=== PATIENT | male | born 1985 | race African-American/Black ===

== ENCOUNTER 2016-06-21 10:36 | Emergency (ER) | payer SELFPAY ==
[2016-06-21] MEDS ORDERED: IBUPROFEN 800 MG TABLET PO ONE (11:00)
--- NOTE | 2016-06-21 11:00 | ER Document Report ---
ED Medical Screen (RME) - General Chief Complaint: Knee Pain Stated Complaint: KNEE, HIP PAIN Time seen by provider: 10:58 Mode of Arrival: Ambulatory Information source: Patient Notes: 30-year-old male presents to ED for left knee and right hip pain after falling down a flight stairs inside of his house last night. Denies loss of consciousness denies any other injuries. Some swollen to the left knee. I have greeted and performed a rapid initial assessment of this patient. A comprehensive ED assessment and evaluation of the patient, analysis of test results and completion of medical decision making process will be conducted by an additional ED providers. TRAVEL OUTSIDE OF THE [place] IN LAST 30 DAYS: No - Related Data Allergies/Adverse Reactions: fabric softener Allergy (Unknown, Uncoded 12/16/15 20:38) fleas Allergy (Unknown, Uncoded 12/16/15 20:38) Past Medical History - Immunizations Hx Diphtheria, Pertussis, Tetanus Vaccination: Yes Physical Exam - Vital signs Vitals: Temp Pulse Resp BP Pulse Ox 98.4 F 74 16 118/77 98 06/21/16 10:56 06/21/16 10:56 06/21/16 10:56 06/21/16 10:56 06/21/16 10:56 Course - Vital Signs Vital signs: Temp Pulse Resp BP Pulse Ox 98.4 F 74 16 118/77 98 06/21/16 10:56 06/21/16 10:56 06/21/16 10:56 06/21/16 10:56 06/21/16 10:56
--- NOTE | 2016-06-21 12:32 | ER Document Report ---
ED General - General Chief Complaint: Fall Stated Complaint: KNEE, HIP PAIN Mode of Arrival: Ambulatory Information source: Patient Notes: 30-year-old male presents with complaitns of right hip pain and left knee pain after a mechanical fall down 12 steps yesterday . pt denies any back or neck pain TRAVEL OUTSIDE OF THE [place] IN LAST 30 DAYS: No - HPI Onset: Yesterday Onset/Duration: Sudden Quality of pain: Achy Severity: Mild Pain Level: 1 Associated symptoms: Body/muscle aches Exacerbated by: Movement Relieved by: Denies Similar symptoms previously: No Recently seen / treated by doctor: No - Related Data Allergies/Adverse Reactions: fabric softener Allergy (Unknown, Uncoded 12/16/15 20:38) fleas Allergy (Unknown, Uncoded 12/16/15 20:38) Past Medical History - General Information source: Patient - Social History Smoking Status: Current Every Day Smoker Cigarette use (# per day): No Chew tobacco use (# tins/day): No Smoking Education Provided: No Frequency of alcohol use: Rare Drug Abuse: None Family History: None Patient has suicidal ideation: No Patient has homicidal ideation: No Renal/ Medical History: Denies: Hx Peritoneal Dialysis Surgical Hx: Negative - Immunizations Hx Diphtheria, Pertussis, Tetanus Vaccination: Yes Review of Systems - Review of Systems Notes: REVIEW OF SYSTEMS: CONSTITUTIONAL : Denies fever, chills, or sweats. Denies recent illness. EENT: Denies eye, ear, throat, or mouth pain or symptoms. Denies nasal or sinus congestion or discharge. Denies throat, tongue, or mouth swelling or difficulty swallowing. CARDIOVASCULAR: Denies chest pain. Denies palpitations or racing or irregular heart beat. Denies ankle edema. RESPIRATORY: Denies cough, cold, or chest congestion. Denies shortness of breath, difficulty breathing, or wheezing. GASTROINTESTINAL: Denies abdominal pain or distention. Denies nausea, vomiting , or diarrhea. Denies blood in vomitus, stools, or per rectum. Denies black, tarry stools. Denies constipation. GENITOURINARY: Denies difficulty urinating, painful urination, burning, frequency, blood in urine, or discharge. MUSCULOSKELETAL: admits to right hip and left knee pain SKIN: Denies rash, lesions or sores. HEMATOLOGIC : Denies easy bruising or bleeding. LYMPHATIC: Denies swollen, enlarged glands. NEUROLOGICAL: Denies confusion or altered mental status. Denies passing out or loss of consciousness. Denies dizziness or lightheadedness. Denies headache. Denies weakness or paralysis or loss of use of either side. Denies problems with gait or speech. Denies sensory loss, numbness, or tingling. Denies seizures. PSYCHIATRIC: Denies anxiety or stress. Denies depression, suicidal ideation, or homicidal ideation. ALL OTHER SYSTEMS REVIEWED AND NEGATIVE. Dictation was performed using [employer] voice recognition software PHYSICAL EXAMINATION: GENERAL: Well-appearing, well-nourished and in no acute distress. HEAD: Atraumatic, normocephalic. EYES: Pupils equal round extraocular movements intact, conjunctiva are normal. ENT: Nares patent NECK: Normal range of motion LUNGS: No respiratory distress Musculoskeletal: Normal range of motion, no deformtiy, pelvis stable, patient able to ambulate with no difficulty NEUROLOGICAL: Normal speech, normal gait. PSYCH: Normal mood, normal affect. SKIN: Warm, Dry, normal turgor, no rashes or lesions noted. Physical Exam - Vital signs Vitals: Temp Pulse Resp BP Pulse Ox 98.4 F 74 16 118/77 98 06/21/16 10:56 06/21/16 10:56 06/21/16 10:56 06/21/16 10:56 06/21/16 10:56 Course - Re-evaluation Re-evalutation: 06/21/16 12:33 physical exam notes no significant abnormality xray is normal, pt is stable for dc with follow up with pcp After performing a Medical Screening Examination, I estimate there is LOW risk for INTRACRANIAL HEMORRHAGE, UNSTABLE SPINE FRACTURE, CENTRAL CORD SYNDROME, CAUDA EQUINA, THORACIC AORTIC DISSECTION, PNEUMOTHORAX, PERFORATED BOWEL, RUPTURED ABDOMINAL AORTIC ANEURYSM, ACUTE TENDON RUPTURE, COMPARTMENT SYNDROME, or OPEN FRACTURE, thus I consider the discharge disposition reasonable. Also, there is no evidence or peritonitis, sepsis, or toxicity. The patient and I have discussed the diagnosis and risks, and we agree with discharging home to follow-up with their primary doctor with the understanding that symptoms and presentations can change. We also discussed returning to the Emergency Department immediately if new or worsening symptoms occur. We have discussed the symptoms which are most concerning (e.g., bloody stool, fever, changing or worsening pain, vomiting) that necessitate immediate return. - Vital Signs Vital signs: Temp Pulse Resp BP Pulse Ox 98.4 F 75 16 118/77 97 06/21/16 10:57 06/21/16 10:57 06/21/16 10:57 06/21/16 10:57 06/21/16 10:57 - Diagnostic Test Radiology reviewed: Image reviewed, Reports reviewed - reports given to patient Discharge - Discharge Clinical Impression: Fall down stairs Qualifiers: Encounter type: initial encounter Qualified Code(s): W10.8XXA - Fall (on) (from ) other stairs and steps, initial encounter Hip pain Qualifiers: Laterality: right Qualified Code(s): M25.551 - Pain in right hip Knee pain Qualifiers: Laterality: left Chronicity: acute Qualified Code(s): M25.562 - Pain in left knee Condition: Stable Disposition: HOME, SELF-CARE Instructions: Contusion ([facility]) Additional Instructions: Follow up with your physician tomorrow for further care or return to the ED IMMEDIATELY if symptoms worsen or new concerns occur Prescriptions: Naproxen 500 mg PO Q8 #30 tablet
[2016-06-21 12:47] VITALS: BP 134/74
== END 2016-06-21 12:45 | disposition home or self-care (01) ==
LOC: ER 10:36
DX: M25.551 Pain in right hip (principal); M25.562 Pain in left knee; F17.210 Nicotine dependence, cigarettes, uncomplicated; W10.8XXA Fall (on) (from) other stairs and steps, initial encounter
CPT/HCPCS: 99283

== ENCOUNTER 2016-06-30 11:13 | Emergency (ER) | payer SELFPAY ==
--- NOTE | 2016-06-30 11:23 | ER Document Report ---
ED Medical Screen (RME) - General Stated Complaint: FLU LIKE SYMPTOMS Notes: 30 yo male c/o sore throat, body aches x 2 days. low grade fever TRAVEL OUTSIDE OF THE [place] IN LAST 30 DAYS: No - Related Data Allergies/Adverse Reactions: fabric softener Allergy (Unknown, Uncoded 06/30/16 11:22) fleas Allergy (Unknown, Uncoded 06/30/16 11:22) Past Medical History Renal/ Medical History: Denies: Hx Peritoneal Dialysis - Immunizations Hx Diphtheria, Pertussis, Tetanus Vaccination: Yes Physical Exam - Vital signs Vitals: Temp Pulse Resp BP 99.3 F 98 24 H 139/82 H 06/30/16 11:20 06/30/16 11:20 06/30/16 11:20 06/30/16 11:20 Course - Vital Signs Vital signs: Temp Pulse Resp BP Pulse Ox 99.3 F 98 24 H 139/82 H 06/30/16 11:20 06/30/16 11:20 06/30/16 11:20 06/30/16 11:20
--- NOTE | 2016-06-30 12:41 | ER Document Report ---
ED General - General Chief Complaint: Flu Symptoms Stated Complaint: FLU LIKE SYMPTOMS Mode of Arrival: Ambulatory Information source: Patient Notes: Patient is a 30 yo male who presents with 3 day history of sore throat, cough, nasal congestion, frontal headache and generalized body aches. He states he also has had associated diarrhea but denies any known fever , chills, dizziness, chest pain, SOB, nausea or vomiting. He denies any recent sick contacts or recent travel. He has not tried any medications, including OTC medications. He has not had his flu vaccine this year. TRAVEL OUTSIDE OF THE [place] IN LAST 30 DAYS: No - Related Data Allergies/Adverse Reactions: fabric softener Allergy (Unknown, Uncoded 06/30/16 11:22) fleas Allergy (Unknown, Uncoded 06/30/16 11:22) Past Medical History - Social History Smoking Status: Current Every Day Smoker Chew tobacco use (# tins/day): No Frequency of alcohol use: Rare Drug Abuse: None Family History: None Patient has suicidal ideation: No Patient has homicidal ideation: No Renal/ Medical History: Denies: Hx Peritoneal Dialysis Surgical Hx: Negative - Immunizations Hx Diphtheria, Pertussis, Tetanus Vaccination: Yes Review of Systems - Review of Systems Constitutional: See HPI EENT: See HPI Cardiovascular: No symptoms reported Respiratory: No symptoms reported Gastrointestinal: See HPI Genitourinary: No symptoms reported Male Genitourinary: No symptoms reported Musculoskeletal: No symptoms reported Skin: No symptoms reported Hematologic/Lymphatic: No symptoms reported Neurological/Psychological: No symptoms reported Physical Exam - Vital signs Vitals: Temp Pulse Resp BP 99.3 F 98 24 H 139/82 H 06/30/16 11:20 06/30/16 11:20 06/30/16 11:20 06/30/16 11:20 Interpretation: Hypertensive - Notes Notes: PHYSICAL EXAM: CONSTITUTIONAL: Alert and oriented, well-appearing and in no acute distress. HENT: Normocephalic, atraumatic. Ear canals without erythema or foreign body, TMs pearly de leon with good bony landmarks, mild erythema noted to canals bilaterally. Nares clear without erythema, septal hematoma or deviation, airway patent. Oropharynx erythematous without tonsilar exudate, enlargement or malocclusion. Trachea midline. Uvula midline. Moist mucous membranes. EYES: Pupils equal round and reactive to light, EOM intact. Sclera anicteric, conjunctiva are normal. No entrapment. NECK: supple without lymphadenopathy. ROM intact. No meningeal signs. HEART: Regular rate and rhythm without murmurs. LUNGS: CTAB and equal. No wheezes, rales or rhonchi. GI: Normactive bowel sounds. Nontender, non-distended. No organomegaly. no CVAT. PSYCH: Normal mood, normal affect. SKIN: Warm and dry. Normal turgor. No rashes or lesions noted. Course - Re-evaluation Re-evalutation: 06/30/16 13:36 Patient seen and examined. Lungs CTAB. Oropharynx without malocclusion, tonsillar exudate or enlargement. Will obtain rapid strep, rapid flu and CXR. Given PO ibuprofen for body aches. 06/30/16 14:22 Reviewed imaging and lab results. Negative influenza, negative rapid strep. CXR negative for acute infiltrate or abnormalities. Reviewed results with patient. Viral etiology most likely. Will give scripts for supportive care treatments. Discharged home in stable condition, follow-up with primary care doctor. - Vital Signs Vital signs: Temp Pulse Resp BP Pulse Ox 99.3 F 98 20 139/82 H 06/30/16 11:20 06/30/16 11:20 06/30/16 12:19 06/30/16 11:20 - Laboratory Laboratory results interpreted by me: Negative influenza and negative rapid strep. - Diagnostic Test Radiology reviewed: Image reviewed, Reports reviewed Discharge - Discharge Clinical Impression: Viral syndrome, Cough Condition: Stable Disposition: HOME, SELF-CARE Additional Instructions: Return immediately for any new or worsening symptoms. Follow-up with primary care provider, call tomorrow to make followup appointment. UPPER RESPIRATORY ILLNESS: You have a viral infection of the respiratory passages -- a "cold." This common infection causes nasal congestion, drainage, and often sore throat and cough. It is highly contagious. The disease usually lasts about 10 to 14 days. There is no "cure" for the viral infection -- it must run its course. If there is a complication, such as bacterial infection in the nose, sinuses, middle ear, or bronchial tubes, antibiotics may be required. The antibiotics won't affect the virus. Drink plenty of fluids. A humidifier may help. An expectorant medication or decongestant may make you more comfortable. Use acetaminophen or ibuprofen for fever or aches. See the doctor if fever persists over two days, if there is any significant worsening of your symptoms, or if you simply fail to improve as expected. BRONCHOSPASM: You have tightness in the bronchial tubes, called bronchospasm. This often occurs with bronchial infections. Allergies, inhaled chemicals, and polluted or cold air can also provoke bronchospasm. It's more likely in patients with asthma in the family. Emergency treatment of bronchospasm may include adrenaline shots or bronchodilator aerosol. You may feel lightheaded and have a rapid pulse for an hour or two. Rest and get plenty of fluids. At home, we'll treat you with a bronchodilator inhaler. Antibiotics and corticosteroids may be required for some patients. Until you recover, avoid chemical fumes, dusts, pollens, and exercising in very cold or dry air. If you smoke, stop now!! If you develop a fever, increased wheezing, chest pain, or severe shortness of breath, you should contact the doctor immediately. DECONGESTANT MEDICATION: A decongestant medicine has been prescribed. Often this medicine is combined in the same tablet with an antihistamine or expectorant. This type of medicine is helpful in treating a bad cold or sinus condition, as well as in treatment of the nasal congestion of hay fever. It is not of much benefit for lung infections. Decongestant medicines are related to stimulants. They can cause an increase in blood pressure and heart rate. Persons with heart disease and high blood pressure should not take decongestants without discussing this with the physician. If you develop palpitations, chest pain, headache, or tremors, stop the medicine and consult your physician. COUGH-SUPPRESSANT & EXPECTORANT MEDICATION: You are to use a cough medication as needed for relief of symptoms. This medicine is a combination of an expectorant (to make the mucous thinner and more easily "coughed up") and a cough suppressant (to reduce the frequency of coughing). The cough-suppressant medicine is related to narcotics. You may experience mild nausea and sleepiness. Some patients who are very sensitive to narcotics may have stomach pain from this medicine. Taking the medicine with food reduces these side effects. Do not drive or work with machinery until you know how this medicine affects you. The expectorant should have no side effects. Iodine-containing expectorants (such as organidin) should not be taken by persons with active thyroid disease unless approved by your doctor. Call the doctor if you develop shortness of breath, hives, rash, itching, lightheadedness, or severe nausea and vomiting. STEROID MEDICATION: You have been given an oral medicine of the cortisone/steroid class. This medication is used to control inflammation or allergy. Juaquin t is usually only given for a short period of time, until the acute process subsides. There are usually no side effects from short-term use of cortisone-like medications. Some persons feel an increased sense of well-being and are not sleepy at bedtime. Long-term use of cortisone medications is best avoided, unless required for a severe condition. If your condition does not remit, or relapses after the course of corticosteroid medication, you should consult your physician. USE OF ACETAMINOPHEN (Tylenol): Acetaminophen may be taken for pain relief or fever control. It's much safer than aspirin, offering a wider range of "safe" dosages. It is safe during . Some brand names are Tylenol, Panadol, Datril, Anacin 3, Tempra, and Liquiprin. Acetaminophen can be repeated every four hours. The following are maximum recommended dosages: >89 pounds or adults 650 mg to 900 mg Acetaminophen can be repeated every four hours. Maximum dose not to exceed 4000 mg a day. SMOKING: If you smoke, you should stop smoking. The tar and chemicals in cigarette smoke are harmful. Smoking has been shown to cause: emphysema chronic bronchitis lung cancer mouth and throat cancer stomach and pancreas cancer premature aging defects In addition, smoking increases ear and lung infections in children of smokers. FOLLOW-UP CARE: If you have been referred to a physician for follow-up care, call the physician s office for an appointment as you were instructed or within the next two days. If you experience worsening or a significant change in your symptoms, notify the physician immediately or return to the Emergency Department at any time for re-evaluation. Prescriptions: Phenol/Sodium Phenolate [Chloraseptic Sore Throat [place] 177 ml] 2 sprays MM Q2HP PRN #1 bottle PRN Reason: Guaifenesin/D-Methorphan Hb [Guaifenesin-Dextromethorph Tab] 1 each PO Q12HP PRN #8 tab.sr.12h PRN Reason: Cough Ibuprofen [Motrin 600 Mg Tablet] 600 mg PO TID #15 tablet Prednisone [Deltasone 20 mg Tablet] 3 tab PO DAILY 5 Days Forms: Elevated Blood Pressure
[2016-06-30] MEDS ORDERED: IBUPROFEN 600 MG TABLET PO ONE (13:00)
[2016-06-30 14:38] VITALS: BP 122/75
== END 2016-06-30 14:37 | disposition home or self-care (01) ==
LOC: ER 11:13
DX: J02.9 Acute pharyngitis, unspecified (principal); B34.9 Viral infection, unspecified; R05 Cough; R09.81 Nasal congestion; F17.200 Nicotine dependence, unspecified, uncomplicated
CPT/HCPCS: 71020; 87070; 87804; 87880; 99283

== ENCOUNTER 2016-11-05 20:12 | Emergency (ER) | payer SELFPAY ==
[2016-11-06] MEDS ORDERED: SULFAMETHOXAZOLE/TRIMETHOPRIM 800-160 MG TABLET PO ONE (02:38)
--- NOTE | 2016-11-06 02:40 | ER Document Report ---
HPI - HPI Patient complains to provider of: leg infection Onset: Other - 2 weeks Onset/Duration: Persistent Quality of pain: Achy Pain Level: 3 Context: Complains of pus draining from his lower leg today. Patient has had swelling and pain to his lower leg for the past 2 weeks. Patient thought it was getting better but then noticed pus again today. Patient denies any fever. Patient denies any history of diabetes. Associated Symptoms: denies: Fever Exacerbated by: Denies Relieved by: Denies Similar symptoms previously: No Recently seen / treated by doctor: No - ROS ROS below otherwise negative: Yes Systems Reviewed and Negative: Yes All other systems reviewed and negative - CONSTITUTIONAL Constitutional: DENIES: Fever, Chills - REPRODUCTIVE Reproductive: DENIES: : - MUSCULOSKELETAL Musculoskeletal: REPORTS: Extremity pain - DERM Skin Color: Normal Notes: wound to LLE Past Medical History - General Information source: Patient - Social History Smoking Status: Current Every Day Smoker Frequency of alcohol use: None Drug Abuse: None Occupation: dump truck operator Family History: None - Medical History Medical History: Negative Renal/ Medical History: Denies: Hx Peritoneal Dialysis Surgical Hx: Negative - Immunizations Hx Diphtheria, Pertussis, Tetanus Vaccination: Yes Vertical Provider Document - CONSTITUTIONAL Agree With Documented VS: Yes Exam Limitations: No Limitations General Appearance: WD/WN, No Apparent Distress - INFECTION CONTROL TRAVEL OUTSIDE OF THE [place] IN LAST 30 DAYS: No - HEENT HEENT: Atraumatic, Normocephalic - NECK Neck: Normal Inspection - RESPIRATORY Respiratory: Breath Sounds Normal, No Respiratory Distress O2 Sat by Pulse Oximetry: 97 - CARDIOVASCULAR Cardiovascular: Regular Rate, Regular Rhythm, No Murmur - MUSCULOSKELETAL/EXTREMETIES Musculoskeletal/Extremeties: MAEW - NEURO Level of Consciousness: Awake, Alert, Appropriate Motor/Sensory: No Motor Deficit - DERM Integumentary: Warm, Dry, Abscess - resolving abscess to anterior aspect of middle third of LLE Course - Vital Signs Vital signs: Temp Pulse Resp BP Pulse Ox 98 F 22 L 18 134/81 H 97 11/05/16 20:58 11/05/16 20:58 11/05/16 20:58 11/05/16 20:58 11/05/16 20:58 Discharge - Discharge Clinical Impression: Abscess Condition: Stable Disposition: HOME, SELF-CARE Instructions: Abscess ([facility]), Trimethoprim-Sulfa ([facility]), Dressing Instructions for Open Wounds ([facility]) Additional Instructions: Return immediately for any new or worsening symptoms Followup with your primary care provider, call tomorrow to make a followup appointment Prescriptions: Sulfamethoxazole/Trimethoprim [Bactrim Ds Tablet] 1 each PO BID #20 tablet Referrals: [facility] [Provider Group] - Follow up as needed
[2016-11-06 03:37] VITALS: BP 129/72
== END 2016-11-06 03:36 | disposition home or self-care (01) ==
LOC: ER 20:12
DX: L02.416 Cutaneous abscess of left lower limb (principal); M79.609 Pain in unspecified limb; M79.89 Other specified soft tissue disorders; F17.200 Nicotine dependence, unspecified, uncomplicated
CPT/HCPCS: 99283

== ENCOUNTER 2016-11-10 18:40 | Emergency (ER) | payer SELFPAY ==
[2016-11-10] MEDS ORDERED: PREDNISONE 20 MG TABLET PO ONE (19:57)
[2016-11-10] MEDS ORDERED: FAMOTIDINE 20 MG TABLET PO ONE (19:57)
[2016-11-10] MEDS ORDERED: DIPHENHYDRAMINE HCL 25 MG CAPSULE PO ONE (19:57)
--- NOTE | 2016-11-10 20:03 | ER Document Report ---
HPI - HPI Patient complains to provider of: hand swelling, insect bite Pain Level: 4 Context: Patient is a 30-year-old male who comes emergency department for chief complaint of swelling to the top of the right hand, he states the area is itchy and slightly red. He states last night he was opening a gate and he saw a spider or insect on his hand that bit him. He is not sure what exactly bit him. He states the insect was on the gate and crawled onto his hand. He denies any spreading redness but states the area has become a little more swollen and more itchy. Past medical history of an abscess in the past, he denies any daily medications or medical history otherwise. Tetanus is up-to- date within 5 years. - REPRODUCTIVE Reproductive: DENIES: : - DERM Skin Color: Normal Past Medical History - General Information source: Patient - Social History Smoking Status: Never Smoker Frequency of alcohol use: None Drug Abuse: None Lives with: Family Family History: None Patient has suicidal ideation: No Patient has homicidal ideation: No - Medical History Medical History: Negative Renal/ Medical History: Denies: Hx Peritoneal Dialysis Surgical Hx: Negative - Immunizations Hx Diphtheria, Pertussis, Tetanus Vaccination: Yes Vertical Provider Document - CONSTITUTIONAL General Appearance: WD/WN, No Apparent Distress - INFECTION CONTROL TRAVEL OUTSIDE OF THE [place] IN LAST 30 DAYS: No - HEENT HEENT: Atraumatic, Normocephalic - NECK Neck: Normal Inspection - RESPIRATORY Respiratory: Breath Sounds Normal, No Respiratory Distress O2 Sat by Pulse Oximetry: 97 - CARDIOVASCULAR Cardiovascular: Regular Rate, Regular Rhythm - GI/ABDOMEN Gastrointestinal: Abdomen Soft, Abdomen Non-Tender - BACK Back: Normal Inspection - MUSCULOSKELETAL/EXTREMETIES Musculoskeletal/Extremeties: Tender - Dorsum of the right hand near the third and fourth MCP joints with slight swelling, mild erythema, no noted tenderness, otherwise normal exam with normal range of motion of the hand, normal capillary refill, normal sensation, normal wrist range of motion - NEURO Level of Consciousness: Awake, Alert, Appropriate - DERM Integumentary: Warm, Dry Course - Re-evaluation Re-evalutation: There is some mild soft tissue swelling over the dorsum of the right hand, no puncture wounds, no evidence of snakebite, appears to be insect bite with localized inflammatory response. Patient on treatment for this mainly with antihistamines, also covering with Keflex due to mild erythema of the area, discussed treatment, discussed return precautions, patient states understanding and agreement. - Vital Signs Vital signs: Temp Pulse Resp BP Pulse Ox 98.5 F 91 16 125/85 97 11/10/16 18:44 11/10/16 18:44 11/10/16 18:44 11/10/16 18:44 11/10/16 18:44 Discharge - Discharge Clinical Impression: Insect bite Qualifiers: Encounter type: initial encounter Qualified Code(s): W57.XXXA - Bitten or stung by nonvenomous insect and other nonvenomous arthropods, initial encounter Hand swelling Qualifiers: Laterality: right Qualified Code(s): M79.89 - Other specified soft tissue disorders Condition: Stable Disposition: HOME, SELF-CARE Additional Instructions: Exam is consistent with localized inflammatory response from insect bite, take the Pepcid and Zyrtec prescribed for the next 7 days. Take the Medrol Dosepak as prescribed. Take the Keflex as prescribed. Follow up with primary care. Return to the Emergency department for any concerning or worsening symptoms including spreading redness, increased swelling, fever, or any other concerning symptoms. Prescriptions: Cephalexin Monohydrate [Keflex 500 mg Capsule] 500 mg PO QID #20 capsule Cetirizine HCl [Zyrtec 10 mg Tablet] 1 tab PO DAILY #30 tablet Famotidine [Pepcid 20 mg Tablet] 20 mg PO DAILY #20 tablet Methylprednisolone [Medrol Dosepack (4 mg/Tab) 21 Tab/Dosepak] 4 mg PO ASDIR PRN #21 tab.ds.pk PRN Reason:
[2016-11-10 20:36] VITALS: BP 131/96
== END 2016-11-10 20:35 | disposition home or self-care (01) ==
LOC: ER 18:40
DX: M79.89 Other specified soft tissue disorders (principal); W57.XXXA Bitten or stung by nonvenomous insect and other nonvenomous arthropods, initial encounter
CPT/HCPCS: 99283; J7512

== ENCOUNTER 2020-05-20 21:07 | Emergency (ER) | payer SELFPAY ==
--- NOTE | 2020-05-20 22:19 | ER Document Report ---
ED Medical Screen (RME) - General Chief Complaint: Medical Complaint Stated Complaint: ABSCESS ON STOMACH Time Seen by Provider: 05/20/20 22:16 Mode of Arrival: Ambulatory Information source: Patient Notes: 34-year-old male presented to ED for an open draining wound to the right lower abdomen. He states it has been draining almost nonstop for 8 months and has not been in to see anybody concerning this. He states he does clean it frequently but now he is just tired of it draining and is here to find out what is going on. It is draining a foul-smelling brown drainage. He states he does smoke a pack a day does not drink or do any drugs. He states he does not have any past medical history. He is alert oriented respirations regular nonlabored speaking in full sentences. It is tender to palpation. I have greeted and performed a rapid initial assessment of this patient. A comprehensive ED assessment and evaluation of the patient, analysis of test results and completion of medical decision making process will be conducted by an additional ED providers. TRAVEL OUTSIDE OF THE [place] IN LAST 30 DAYS: No - Related Data Allergies/Adverse Reactions: No Known Drug Allergies Allergy (Verified 05/20/20 22:02) fabric softener Allergy (Unknown, Uncoded 05/20/20 22:02) fleas Allergy (Unknown, Uncoded 05/20/20 22:02) Past Medical History Renal/ Medical History: Denies: Hx Peritoneal Dialysis - Immunizations Hx Diphtheria, Pertussis, Tetanus Vaccination: Yes Physical Exam - Vital signs Vitals: Temp Pulse Resp BP Pulse Ox 98.2 F 106 H 20 155/99 H 97 05/20/20 21:17 05/20/20 21:17 05/20/20 21:17 05/20/20 21:17 05/20/20 21:17 Course - Vital Signs Vital signs: Temp Pulse Resp BP Pulse Ox 98.2 F 106 H 20 155/99 H 97 05/20/20 21:17 05/20/20 21:17 05/20/20 21:17 05/20/20 21:17 05/20/20 21:17
[2020-05-20 22:44] LABS: ABSOLUTE BASOPHILS # (AUTO) 0.1 10^3/uL (0.0-0.2); ABSOLUTE EOSINOPHILS # (AUTO) 0.5 10^3/uL (0.0-0.6); ABSOLUTE LYMPHOCYTES (AUTO) 3.3 10^3/uL (0.5-4.7); ABSOLUTE MONOCYTES (AUTO) 0.7 10^3/uL (0.1-1.4); ABSOLUTE NEUT (AUTO) 6.9 10^3/uL (1.7-8.2); BASOPHILS % (AUTO) 1.3 % (0-2); EOSINOPHILS % (AUTO) 4.2 % (0-6); HEMATOCRIT 35.3 % (37.9-51.0); HEMOGLOBIN 11.7 g/dL (13.5-17.0); LYMPHOCYTES % (AUTO) 28.7 % (13-45); MEAN CORPUSCULAR HEMOGLOBIN 28.7 pg (27.0-33.4); MEAN CORPUSCULAR HGB CONC 33.2 g/dL (32.0-36.0); MEAN CORPUSCULAR VOLUME 86 fl (80-97); MONOCYTES % (AUTO) 5.8 % (3-13); PLATELET COUNT 290 10^3/uL (150-450); RED BLOOD COUNT 4.09 10^6/uL (4.35-5.55); RED CELL DISTRIBUTION WIDTH 14.9 % (11.5-14.0); TOTAL CELLS COUNTED % (AUTO) 100 %; WHITE BLOOD COUNT 11.5 10^3/uL (4.0-10.5)
[2020-05-20 23:05] LABS: ALBUMIN 4.5 g/dL (3.5-5.0); ALKALINE PHOSPHATASE 109 U/L (38-126); ANION GAP 8 (5-19); ASPARTATE AMINO TRANSFERASE 33 U/L (17-59); BILIRUBIN,DIRECT 0.1 mg/dL (0.0-0.4); BILIRUBIN,TOTAL 0.3 mg/dL (0.2-1.3); BLOOD UREA NITROGEN 15 mg/dL (7-20); CALCIUM 9.9 mg/dL (8.4-10.2); CARBON DIOXIDE 29 mmol/L (22-30); CHLORIDE 102 mmol/L (98-107); GLUCOSE 99 mg/dL (75-110); POTASSIUM 4.5 mmol/L (3.6-5.0)
--- NOTE | 2020-05-20 23:34 | RADIOLOGY REPORT (SQ) ---
EXAM DESCRIPTION: US ABDOMEN LIMITED COMPLETED DATE/TME: 05/20/2020 22:54 CLINICAL HISTORY: 34 years, Male, Open draining wound to right lower abdomen COMPARISON: None. TECHNIQUE: Sonographic evaluation of the anterior right lower quadrant abdominal wall was performed. Aguilar scale imaging and color Doppler imaging were performed. LIMITATIONS: None. FINDINGS: There is a 3.5 x 3.4 x 0.7 cm complex fluid collection with adjacent hyperemia localized to the superficial subcutaneous tissues of the anterior right lower quadrant. IMPRESSION: 3.5 x 3.4 x 0.7 cm complex fluid collection with hyperemia, most consistent with abscess. copyright 2010 [employer]- All Rights Reserved
[2020-05-21] MEDS ORDERED: CEPHALEXIN 500 MG CAPSULE PO ONE (00:16)
[2020-05-21] MEDS ORDERED: SULFAMETHOXAZOLE/TRIMETHOPRIM 800-160 MG TABLET PO ONE (00:16)
--- NOTE | 2020-05-21 00:17 | ER Document Report ---
ED General - General Chief Complaint: Abscess Stated Complaint: ABSCESS ON STOMACH Time Seen by Provider: 05/20/20 22:16 Primary Care Provider: [facility] [Provider Group] - Follow up as needed Mode of Arrival: Ambulatory Information source: Patient Notes: Otherwise healthy 34-year-old male presented to emergency department chief complaint of abscess to his stomach. Patient reports abscess has been present for approximately 8 months. He reports he has been intermittently draining. He has not sought medical treatment for this. He denies any fever or chills. Denies any history of similar. TRAVEL OUTSIDE OF THE [place] IN LAST 30 DAYS: No - Related Data Allergies/Adverse Reactions: No Known Drug Allergies Allergy (Verified 05/20/20 22:02) fabric softener Allergy (Unknown, Uncoded 05/20/20 22:02) fleas Allergy (Unknown, Uncoded 05/20/20 22:02) Past Medical History - General Information source: Patient - Social History Smoking Status: Current Every Day Smoker Family History: None Patient has homicidal ideation: No - Medical History Medical History: Negative Renal/ Medical History: Denies: Hx Peritoneal Dialysis Surgical Hx: Negative - Immunizations Hx Diphtheria, Pertussis, Tetanus Vaccination: Yes Review of Systems - Review of Systems Skin: See HPI -: Yes All other systems reviewed and negative Physical Exam - Vital signs Vitals: Temp Pulse Resp BP Pulse Ox 98.2 F 106 H 20 155/99 H 97 05/20/20 21:17 05/20/20 21:17 05/20/20 21:17 05/20/20 21:17 05/20/20 21:17 - Notes Notes: PHYSICAL EXAMINATION: GENERAL: Well-appearing, well-nourished and in no acute distress. HEAD: Atraumatic, normocephalic. EYES: Pupils equal round and reactive to light, extraocular movements intact, sclera anicteric, conjunctiva are normal. ENT: Nares patent, oropharynx clear without exudates. Moist mucous membranes. NECK: Normal range of motion, supple without lymphadenopathy LUNGS: Breath sounds clear to auscultation bilaterally and equal. No wheezes rales or rhonchi. HEART: Regular rate and rhythm without murmurs ABDOMEN: Soft, nontender, nondistended abdomen. No guarding, no rebound. No masses appreciated. Musculoskeletal: Normal range of motion, no pitting or edema. No cyanosis. NEUROLOGICAL: Cranial nerves grossly intact. Normal speech, normal gait. Normal sensory, motor exams PSYCH: Normal mood, normal affect. SKIN: Areas of erythema with induration and fluctuance noted to right lower quadrant of the abdomen/pelvic area. No streaking noted. Course - Re-evaluation Re-evalutation: Abscess was incised and drained in 2 separate locations. A moderate amount of purulent drainage obtained. Patient will need to follow-up with the surgical clinic. He has been started on antibiotics today. Patient agreeable to plan. - Vital Signs Vital signs: Temp Pulse Resp BP Pulse Ox 98.4 F 84 14 128/74 H 98 05/21/20 01:53 05/21/20 01:53 05/21/20 01:53 05/21/20 01:53 05/21/20 01:53 - Laboratory Results Result Diagrams: 05/20/20 22:23 05/20/20 22:23 Laboratory Results Interpreted: 05/20/20 05/20/20 22:23 22:23 WBC 11.5 H RBC 4.09 L Hgb 11.7 L Hct 35.3 L RDW 14.9 H Creatinine 1.46 H Est GFR (MDRD) Non-Af 55 L Total Protein 9.0 H Critical Laboratory Results Reviewed: No Critical Results - Radiology Results Critical Radiology Results Reviewed: No Critical Results Procedures - Incision and Drainage Right lower quadrant abdomen Type: Multiple Anesthetic type: 1% Lidocaine Blade size: 11 I&D procedure: Betadine prep applied Incision Method: Incision made by scalpel Discharge - Discharge Clinical Impression: Abscess Condition: Stable Disposition: HOME, SELF-CARE Additional Instructions: You were seen for an abscess that required drainage. Please clean this area with soap and water twice daily and apply a topical antibiotic such as Neosporin. Dress the area after each cleaning. If packing was placed this must be removed in 48 hours. Please return if you develop fever, vomiting, the pain at the site worsens, you notice spreading redness from the area, or you have any other symptoms that are concerning to you. Please follow-up with the surgical clinic, call them later today to schedule an appointment. Prescriptions: Sulfamethoxazole/Trimethoprim [Bactrim Ds Tablet] 1 tab PO BID #14 tablet Cephalexin [Keflex] 500 mg PO BID #14 capsule Referrals: [facility] [Provider Group] - Follow up as needed
[2020-05-21 01:55] VITALS: BP 128/74
== END 2020-05-21 01:53 | disposition home or self-care (01) ==
LOC: ER 21:07
DX: L02.211 Cutaneous abscess of abdominal wall (principal); F17.200 Nicotine dependence, unspecified, uncomplicated
CPT/HCPCS: 36415; 76705; 80053; 85025; 87040; 99284

== ENCOUNTER 2020-05-22 13:05 | Emergency (ER) | payer SELFPAY ==
[2020-05-22 13:15] VITALS: BP 151/85
[2020-05-22] MEDS ORDERED: LIDOCAINE 1.5%/EPINEPHRINE INJ-PF 30 ML SDV INJ ONE (14:07)
--- NOTE | 2020-05-22 14:14 | ER Document Report ---
HPI - HPI Time Seen by Provider: 05/22/20 13:58 Notes: 34-year-old male presents to the emergency room today for repacking to an abscess to his right lower quadrant that was drained on 05/20/2020, he was placed on Bactrim and Keflex for outpatient antibiotic therapy. Patient has been taking his antibiotics without any issues. Reports pain is 2 out of 5, throbbing achy. Taking [id number] Tylenol for pain control. Denies any fevers chills, nausea, vomiting, diarrhea, abdominal pain. Denies any chest pain or shortness of breath. Patient reports when he had his abscess drained the other day, he had had it for well over 8 months. Denies hematuria, weakness, bowel or bladder dysfunction, saddle anesthesia, numbness or tingling in bilateral upper or lower extremities equally, muscle paralysis, weakness in bilateral upper or lower extremities equally or rash. - REPRODUCTIVE Reproductive: DENIES: : Past Medical History - General Information source: Patient - Social History Smoking Status: Unknown if Ever Smoked Family History: None Renal/ Medical History: Denies: Hx Peritoneal Dialysis - Immunizations Hx Diphtheria, Pertussis, Tetanus Vaccination: Yes Vertical Provider Document - CONSTITUTIONAL Agree With Documented VS: Yes Exam Limitations: No Limitations General Appearance: WD/WN Notes: MEDICATIONS: I agree with the patient medications as charted by the RN. ALLERGIES: I agree with the allergies as charted by the RN. PAST MEDICAL HISTORY/PAST SURGICAL HISTORY: Reviewed and agree as charted by RN. SOCIAL HISTORY: Reviewed and agree as charted by RN. FAMILY HISTORY: No significant familial comorbid conditions directly related to patient complaint EXAM: Reviewed vital signs as charted by RN. PHYSICAL EXAMINATION:reviewed vital signs by RN GENERAL: Well-appearing, well-nourished and in no acute distress. HEAD: Atraumatic, normocephalic. ENT: Nares patent, oropharynx clear without exudates. Moist mucous membranes. NECK: Normal range of motion, supple without lymphadenopathy LUNGS: Breath sounds clear to auscultation bilaterally and equal. No wheezes rales or rhonchi. HEART: Regular rate and rhythm without murmurs ABDOMEN: Soft, nontender, nondistended abdomen. No guarding, no rebound. No masses appreciated. Musculoskeletal: Normal range of motion, no pitting or edema. No cyanosis. NEUROLOGICAL: Cranial nerves grossly intact. Normal speech, normal gait. Normal sensory, motor exams PSYCH: Normal mood, normal affect. SKIN: Warm, Dry, normal turgor, no rashes or lesions noted. Right lower quadrant with 2 I&D sites without any surrounding erythema induration or warmth to touch. No surrounding lymphadenopathy. packing intact - INFECTION CONTROL TRAVEL OUTSIDE OF THE [place] IN LAST 30 DAYS: No Course - Re-evaluation Re-evalutation: 05/22/20 14:12 Afebrile vital stable no distress. Nurses notes reviewed. Verbal consent given by patient for packing change. Did remove 3 inches of iodoform packing from one site to right lower quadrant, 1 inch iodoform packing from adjacent site to right lower quadrant. Site cleaned with Shur-Clens, one fourth iodoform packing soaked in lidocaine with epi, 3 inches of iodoform placed and 1 inch iodoform placed in I&D sites. Patient tolerated procedure without incident. Advised to return to the emergency room in 48 hours for packing change. Continue to take Bactrim and Keflex as directed. After performing a Medical Screening Examination, I estimate there is LOW risk for OPEN FRACTURE, COMPARTMENT SYNDROME, TENDON RUPTURE, ACUTE NEUROVASCULAR INJURY, or RETAINED FOREIGN BODY, thus I consider the discharge disposition reasonable. Also, there is no evidence or peritonitis, sepsis, or toxicity. I have reevaluated this patient multiple times and no significant life threatening changes are noted. The patient and I have discussed the diagnosis and risks, and we agree with discharging home with close follow-up with the understanding that symptoms and presentations can change. We also discussed returning to the Emergency Department immediately if new or worsening symptoms occur. We have discussed the symptoms which are most concerning (e.g., changing or worsening pain, fever, numbness, weakness, cool or painful digits) that necessitate immediate return. - Vital Signs Vital signs: Temp Pulse Resp BP Pulse Ox 98.1 F 101 H 16 151/85 H 97 05/22/20 13:12 05/22/20 13:12 05/22/20 13:12 05/22/20 13:12 05/22/20 13:12 - Laboratory Results Critical Laboratory Results Reviewed: No Critical Results - Radiology Results Critical Radiology Results Reviewed: No Critical Results Discharge - Discharge Clinical Impression: Wound packing Condition: Stable Disposition: HOME, SELF-CARE Additional Instructions: Return within 48 hours for packing reevaluation. Please continue your antibiotic therapy as directed, please take food prior to taking antibiotics. You can take [id number]-usayosy Tylenol and ibuprofen for pain control. If your symptoms become worse return to the emergency room prior to the next 2 days. Return immediately for any new or worsening symptoms. Follow up with primary care provider, call tomorrow to make followup appointment. Referrals: IDALIA LIM MD [COMMUNITY BASED STAFF] - Follow up as needed
[2020-05-22] MEDS ORDERED: LIDOCAINE 1%/EPINEPHRINE INJ 20 ML VIAL ONE (14:15)
[2020-05-22] MEDS ORDERED: LIDOCAINE 1%/EPINEPHRINE INJ 20 ML VIAL INJ ONE (14:16)
== END 2020-05-22 14:31 | disposition home or self-care (01) ==
LOC: ER 13:05
DX: L02.211 Cutaneous abscess of abdominal wall (principal)
CPT/HCPCS: 99281; J3490

== ENCOUNTER 2020-05-24 21:52 | Emergency (ER) | payer SELFPAY ==
--- NOTE | 2020-05-24 22:33 | ER Document Report ---
HPI - HPI Patient complains to provider of: Packing removal Time Seen by Provider: 05/24/20 22:22 Pain Level: 2 Context: 34-year-old male presents to the emergency room for packing removal from right lower quadrant of abdomen. Patient was seen here on May 20 when he had the area opened and drained. Packing was applied. Patient was discharged home with Bactrim and Keflex.. He returned 2 days ago on May 22 had the packing changed. He is here to have the packing removed. He denies any fevers, pain, no discharge or draining from the area is taking his antibiotics as prescribed. Associated Symptoms: None Exacerbated by: Denies Relieved by: Denies Recently seen / treated by doctor: Yes - 2 days ago in the emergency room - ROS Systems Reviewed and Negative: Yes All other systems reviewed and negative - CONSTITUTIONAL Constitutional: DENIES: Fever - NEURO Neurology: DENIES: Headache - RESPIRATORY Respiratory: DENIES: Trouble Breathing - GASTROINTESTINAL Gastrointestinal: DENIES: Abdominal Pain, Nausea, Patient vomiting - REPRODUCTIVE Reproductive: REPORTS: : - DERM Skin Color: Normal Past Medical History - General Information source: Patient - Social History Smoking Status: Current Every Day Smoker Chew tobacco use (# tins/day): No Frequency of alcohol use: None Drug Abuse: None Family History: None Renal/ Medical History: Denies: Hx Peritoneal Dialysis - Immunizations Hx Diphtheria, Pertussis, Tetanus Vaccination: Yes Vertical Provider Document - CONSTITUTIONAL Agree With Documented VS: Yes Exam Limitations: No Limitations General Appearance: No Apparent Distress - INFECTION CONTROL TRAVEL OUTSIDE OF THE [place] IN LAST 30 DAYS: No - HEENT HEENT: Atraumatic, Normocephalic - NECK Neck: Normal Inspection, Supple - RESPIRATORY Respiratory: Breath Sounds Normal, No Respiratory Distress - CARDIOVASCULAR Cardiovascular: Regular Rate, Regular Rhythm, No Murmur - GI/ABDOMEN Gastrointestinal: Abdomen Soft, Abdomen Non-Tender. negative: Abdominal Guarding, Abdominal Rebound, No Organomegaly - NEURO Level of Consciousness: Awake, Alert, Appropriate Motor/Sensory: No Motor Deficit, No Sensory Deficit - DERM Integumentary: Warm, Dry Notes: Right lower quadrant of abdomen with 2 small areas that were previously incised and drained with packing placed. Remove packing without difficulty. There was no erythema, not warm or tender to palpation. No active discharge or draining noted. Sites are healing well. Course - Re-evaluation Re-evalutation: 12/26/20 22:30 Packing was removed without difficulty to right lower quadrant of abdomen. There is no drainage. No erythema. No warmth. Patient was counseled to complete his course of antibiotics. He is to follow-up outpatient with a general surgery for any new concerns or if the abscess returns. Also discussed his elevated blood pressure and the need to follow-up with a primary care physician for further evaluation of his hypertension. He is asymptomatic with no chest pain, shortness of breath, difficulty breathing. Patient was given strict return to the emergency room guidelines. Return for any new or worsening symptoms. All questions were answered. Patient verbalized understanding and agrees with plan of care. - Vital Signs Vital signs: Temp Pulse Resp BP Pulse Ox 97.9 F 78 22 H 164/104 H 100 05/24/20 22:08 05/24/20 22:08 05/24/20 22:08 05/24/20 22:08 05/24/20 22:08 - Laboratory Results Critical Laboratory Results Reviewed: No Critical Results - Radiology Results Critical Radiology Results Reviewed: No Critical Results Discharge - Discharge Clinical Impression: Abdominal abscess, Abscess packing removal, Elevated blood pressure reading without diagnosis of hypertension Condition: Stable Disposition: HOME, SELF-CARE Instructions: Abscess ([facility]), High Blood Pressure ([facility]) Additional Instructions: Clean area daily. Outpatient follow-up with general surgery as discussed. Also counseled importance of an outpatient follow-up with primary care physician for his elevated blood pressure. Finish course of antibiotics. Return to the emergency room for any new or worsening symptoms. Referrals: DIDI ABREU DO [NO LOCAL MD] - Follow up in 3-5 days (Call for follow-up appointment for your elevated blood pressure) ZACH UKMAR MD [ACTIVE STAFF] - Follow up as needed
[2020-05-24 22:40] VITALS: BP 145/87
== END 2020-05-24 22:38 | disposition home or self-care (01) ==
LOC: ER 21:52
DX: L02.211 Cutaneous abscess of abdominal wall (principal); R03.0 Elevated blood-pressure reading, without diagnosis of hypertension; F17.200 Nicotine dependence, unspecified, uncomplicated
CPT/HCPCS: 99282